=== PATIENT | female | born 1990 | race African-American/Black ===

== ENCOUNTER → 2020-07-17 13:51 | Outpatient (BNVA) | payer OTHER, SELFPAY | PROVIDERS: PCP Internal Medicine; Referring Provider Internal Medicine; Visit Provider Surgery | DX: K43.9 Ventral hernia without obstruction or gangrene (principal) | CPT/HCPCS: 99202 ==

== ENCOUNTER 2020-07-28 08:58 | Day surgery (SDC) | payer OTHER, SELFPAY ==
[2020-07-22 09:44] VITALS: BMI 33.0
--- NOTE | 2020-07-25 12:10 | HO.ANESPROP2 ---
Documented by User: Rosie Parsons 07/25/20 12:10 HPI - Anesthesia Eval Consult details Narrative: 30yo F for Hernia Repair Ventral PMFSH Active Problems Active Problems: All Active Problems (Updated 07/17/20 @ 14:46 by Adama You MD) Ventral hernia (Acute) Family History Family History Mother Breast cancer Maternal Grandmother Breast cancer Paternal Grandfather Cancer of unknown origin Surgical History Surgical History H/O shoulder surgery Social History Social History Alcohol intake: current Smoking Status: Current every day smoker Are you DNR?: No Advance Directives: No Advance Directives Information Provided: No Advance Directives on File: No Recently lost weight without trying: No Eating poorly because of decreased appetite: No Nutrition Risks: No Nutritional Risk Current occupation: [employer], 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 Med Allergies Allergy/AdvReac Type Severity Reaction Status Date / Time No Known Allergies Allergy Verified 07/22/20 09:46 Home Medications Medication Instructions Recorded Confirmed Last Taken Type No Known Home Meds 07/17/20 07/22/20 Unknown History Exam Exam Date and Time: July 25, 2020 1210 Height,Weight and Vital Signs: Height 5 ft 9 in Weight 101.605 kg Assessment and Plan Assessment Anesthesia Assessment: Chart Reviewed Documented by User: Belinda Raymond 07/28/20 08:04 PMFSH Family History Family History Mother Breast cancer Maternal Grandmother Breast cancer Paternal Grandfather Cancer of unknown origin Surgical History Surgical History H/O shoulder surgery Social History Social History Alcohol intake: current Smoking Status: Current every day smoker Are you DNR?: No Advance Directives: No Advance Directives Information Provided: No Advance Directives on File: No Recently lost weight without trying: No Eating poorly because of decreased appetite: No Nutrition Risks: No Nutritional Risk Current occupation: [employer], 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 Meds Allergies Allergy/AdvReac Type Severity Reaction Status Date / Time No Known Allergies Allergy Verified 07/22/20 09:46 Home Medications Medication Instructions Recorded Confirmed Last Taken Type No Known Home Meds 07/17/20 07/22/20 Unknown History Exam Airway Mallampati Class: II TM Dist: >3cm Neck ROM: Full Assessment and Plan Assessment Anesthesia Assessment: Anesthesia Plan Discussed and Chart Reviewed Final Anesthetic Review NPO: Yes ASA Class: II Final Preanesthetic Review: No Changes in Pt Med Stat, Meds/Allgs Chart Reviewed, Consent Obtained/Reviewed and Anes Risks/Benef Reviewed Patient Risk: Low Procedure Risk: Low Assessment/Block/Sedation in SS: Assess/Block/Sedation-SS Anesthetic Plan Anesthetic Plan: GA Disposition: Standard PACU
[2020-07-28] VITALS (7 sets, daily range): BP systolic 99–130; BP diastolic 57–80; PULSE 16–92; RESP 16–18; TEMP 36.5–36.7; O2SAT 97–100
[2020-07-28 08:39] LABS: Urine Pregnancy NEGATIVE (NEGATIVE)
[2020-07-28] MEDS: Lactated Ringers 1,000 ML 100 ML IVCONT (08:53)
--- NOTE | 2020-07-28 08:53 | MHC.SHP ---
Pre-Procedural Eval Section A Changes since office visit: Yes Patient answered all questions; No Cold of Flu in the past 2 weeks, No New Medical Problems and No Changes in Medication The History & Physical has been completed within 30 days and I have reviewed it.: Yes Section B Chief Complaint: Ventral Hernia Allergies: Allergies Allergy/AdvReac Type Severity Reaction Status Date / Time No Known Allergies Allergy Verified 07/22/20 09:46 Plan Diagnosis/Plan: Unchanged I have reviewed the history and physical and performed a pertinent physical examination on my patient. No changes have occurred unless specified.
[2020-07-28 08:54] LABS: UPreg QC Valid YES
--- NOTE | 2020-07-28 10:06 | P.OP_ITS ---
Operative Note Operative Note Date of Service: 07/28/20 Narrative: Preoperative diagnosis: Ventral Hernia Postoperative diagnosis: same Procedure: Repair of ventral hernia with mesh Surgeon: Adama You MD Senior Recruitment Consultant: CONSUELO Boswell Anesthesia:general LMA Indications for procedure: 30-year-old female patient presenting with a painful lump just above the umbilicus, which increases in size with lifting and straining and causes discomfort when pressed. On examination the patient is found to have a ventral hernia located just above the umbilicus which increases in size with Valsalva maneuvers. Operative findings: Ventral hernia with a defect measuring approximately 1.5 cm. Specimen: Preperitoneal fat Estimated blood loss: 5 mL Complications: None Procedure details: Patient was brought to the OR placed in a supine position. After administering general anesthesia the patient's abdomen was prepped with ChloraPrep and draped in a sterile fashion. A surgical time-out was called and the consent confirmed. Patient received preoperative antibiotics and Venodyne boots were in place. Local anesthesia consisting of 0.25% Sensorcaine with epinephrine was infiltrated in the midline just above the umbilicus. Incision was then made with a scalpel carried out through subcutaneous tissue down to the hernia sac. The hernia sac was then bluntly dissected down to the fascial edge. Fascial edge was then freed using electrocautery and blunt dissection. An attempt was made at reducing the hernia contents however this was felt to be too large to fit back into the small hole in the fascia. The preperitoneal fat was then excised using electrocautery. A preperitoneal space was then created below the fascia circumferentially. The defect was measured at 1.5 cm. A 4.6 cm round Ventralex mesh was then obtained. This was placed in the preperitoneal space and secured to the fascia using [id number] 1. Tycron sutures which included the fascia and the mesh. The wounds were then irrigated with saline solution suctioned dry. Additional local anesthesia was then infiltrated at this time. Hemostasis was assured using electrocautery. Deep subcutaneous tissue and dermis reapproximated using interrupted 3 0 Polysorb sutures. Skin was then closed using a running subcuticular 4-0 Polysorb suture. Steri-Strips 2 x 2 gauze and Tegaderm were then applied. The patient tolerated the procedure well. Sponge, instrument, and needle counts were reported as correct. The patient was transferred to PACU in stable condition.
[2020-07-28] MEDS: oxyCODONE HCl Immed Release 5 MG TABLET PO (10:21)
[2020-07-28] MEDS: Acetaminophen 325 MG TABLET 650 MG PO (10:22)
== END 2020-07-28 11:25 | disposition home or self-care (01) ==
PROVIDERS: Nurse Practitioner; PCP Internal Medicine; Visit Provider Surgery
PROC: (CPT 49560; principal; 2020-07-28 09:10)
DX: K43.9 Ventral hernia without obstruction or gangrene (principal); F17.200 Nicotine dependence, unspecified, uncomplicated
CPT/HCPCS: 49560; 49568; 81025; 88304; C1781; J0690; J1100; J1170; J1885; J2250; J2405; J3010

== ENCOUNTER → 2020-08-07 14:03 | Outpatient (BNVA) | payer OTHER, SELFPAY | PROVIDERS: PCP Internal Medicine; Referring Provider Internal Medicine; Visit Provider Surgery | DX: Z48.815 Encounter for surgical aftercare following surgery on the digestive system (principal); Z87.19 Personal history of other diseases of the digestive system | CPT/HCPCS: 99212 ==

== ENCOUNTER → 2020-09-04 09:23 | Outpatient (BNVA) | payer OTHER, SELFPAY | PROVIDERS: PCP Internal Medicine; Referring Provider Internal Medicine; Visit Provider Surgery | DX: K43.9 Ventral hernia without obstruction or gangrene (principal) | CPT/HCPCS: 99212 ==